=== PATIENT | female | born 1985 | race Asian ===

== ENCOUNTER 2022-09-13 19:19 | Outpatient (CLI) | payer OTHER ==
--- NOTE | 2022-09-14 17:22 | XRAY Report ---
PROCEDURE: Chest 2 View X-Ray INDICATIONS: COUGH, UNSPECIFIED TECHNIQUE: 2 views of the chest were acquired. COMPARISON: None. FINDINGS: Surgical changes and devices: None. Lungs and pleura: No pleural effusions or pneumothorax. Lungs are clear. Mediastinum: Mediastinal contours appear normal. Heart size is normal. Bones and chest wall: No suspicious bony lesions. Overlying soft tissues appear unremarkable. IMPRESSION: No acute cardiopulmonary process. Reviewed by: Nigel Lynn MD on 09/14/2022 5:21 PM PDT Approved by: Nigel Lynn MD on 09/14/2022 5:21 PM PDT Station ID: [id number]
== END 2022-09-13 19:20 | disposition home or self-care (01) ==
LOC: DI 19:19
PROVIDERS: ATTEND Nurse Practitioner
DX: R05.9 Cough, unspecified (principal)